=== PATIENT | female | born 1955 | race Caucasian/White ===

== ENCOUNTER 2016-07-31 16:54 | Emergency (ER) | payer OTHER ==
[~2016-07-31] VITALS: Ht 200.7 cm; Wt 131.0 kg
[~2016-07-31 16:54] MED LIST: LISI-363 PO; METO25TA6 PO
[2016-07-31 16:56] VITALS: BP 151/78; PULSE 77; RESP 15; TEMP 98.3; O2SAT 99
--- NOTE | 2016-07-31 17:00 | PD ---
Physical Exam Time Seen by Provider: 16:59 Narrative 61yo F c/o Left arm pain [id number]. Denies injury. Pain is at the left elbow and radiates up and down the arm. Patient seen in triage. VS reviewed. Awaiting bed placement. Data Data Last Documented VS Vital Signs Date Time Temp Pulse Resp B/P Pulse Ox O2 Delivery O2 Flow Rate FiO2 07/31/16 16:56 98.3 77 15 151/78 99 MDM Supervised Visit with CARLOS A: Shavon Reyes Jul 31, 2016 17:00
[2016-07-31] MEDS ORDERED: ORPH100T99 PO (17:52)
[2016-07-31] MEDS ORDERED: TRAM50TA PO (17:52)
[2016-07-31] MEDS ORDERED: PRED10PA2 PO (17:52)
--- NOTE | 2016-07-31 18:00 | PD ---
HPI Chief Complaint: Injury Time Seen by Provider: 17:53 Travel History International Travel<30 days: No Contact w/Intl Traveler<30days: No Traveled to known affect area: No History of Present Illness HPI 61-year-old female presents the emergency department with 2 week history of increasing left elbow and upper arm and shoulder pain over the past 2 weeks. Patient did have a recent knee replacement with Dr. Coats, and she has been using a walker for ambulation over the past few weeks. She denies any other specific injury. She has no numbness tingling or other weakness other than from pain. Patient denies carpal tunnel symptoms. She is been taking ibuprofen without improvement. The pain in the shoulder is worse at night. Pain currently an 8 out of 10. She has history of MRSA but no other medication allergy. PFSH Past Medical History Hx Anticoagulant Therapy: No Cancer: Yes (endometrial 2006) Cardiovascular Problems: Yes (HTN) Chemotherapy: No Cerebrovascular Accident: No Diabetes: Yes (PRE-DIABETIC) Diminished Hearing: No Hypertension: Yes Respiratory: No Immunizations Current: Yes ?: Not Menopausal: Yes : 4 Para: 4 Past Surgical History Section: Yes (x2) Cholecystectomy: Yes Hysterectomy: Yes (2006) Tonsillectomy: Yes Social History Alcohol Use: No Tobacco Use: No Substance Use: No Allergies-Medications (Allergen,Severity, Reaction): Coded Allergies: *MDRO Multi-Drug Resistant Organism (Unverified Adverse Reaction, Unknown , 08/09/15) MRSA Reported Meds & Prescriptions Reported Meds & Active Scripts Active Toprol XL (Metoprolol Succinate) 25 Mg Nidia 25 Mg PO DAILY 30 Days Reported Lisinopril 20 mg (Lisinopril) 20 Mg Tab 1 Tab PO DAILY Review of Systems Except as stated in HPI: all other systems reviewed are Neg General / Constitutional: No: Fever Eyes: No: Visual changes HENT: No: Headaches Cardiovascular: No: Chest Pain or Discomfort Respiratory: No: Shortness of Breath Gastrointestinal: No: Abdominal Pain Genitourinary: No: Dysuria Musculoskeletal: Positive: Myalgias, Arthralgias, Limited ROM, Pain Skin: No Rash Neurologic: No: Weakness Psychiatric: No: Depression Endocrine: No: Polydipsia Hematologic/Lymphatic: No: Easy Bruising Physical Exam Narrative GENERAL: Patient appears in no acute distress. SKIN: Warm and dry. Normal color. Normal turgor. No signs of trauma. HEAD: Atraumatic. Normocephalic. EYES: Pupils equal and round. No scleral icterus. No injection or drainage. ENT: No nasal bleeding or discharge. Mucous membranes pink and moist. Pharynx is clear. NECK: Trachea midline. No bony tenderness or step-off. Patient has full range of motion without tenderness or recurrence acute complaint symptoms. CARDIOVASCULAR: Regular rate and rhythm. RESPIRATORY: No accessory muscle use. Clear to auscultation. Breath sounds equal bilaterally. MUSCULOSKELETAL: Extremities without clubbing, cyanosis, or edema. No obvious deformities. Patient has significant soft tissue tenderness along the left trapezius, subscapularis, and paraspinous muscles which reproduce her symptoms. Patient also has specific tenderness at the left lateral upper condyle of the elbow, which is worse with palpation as well as supination and pronation against resistance. Patient has no rotator cuff symptoms. Home Health Care Coordinator strength is normal. Neurovascular exam is normal distal to the elbow. NEUROLOGICAL: Awake and alert. No obvious cranial nerve deficits. Motor grossly within normal limits. Five out of 5 muscle strength in the arms and legs. Normal speech. PSYCHIATRIC: Appropriate mood and affect; insight and judgment normal. Data Data Last Documented VS Vital Signs Date Time Temp Pulse Resp B/P Pulse Ox O2 Delivery O2 Flow Rate FiO2 07/31/16 16:56 98.3 77 15 151/78 99 MDM Medical Decision Making Medical Screen Exam Complete: Yes Emergency Medical Condition: Yes Differential Diagnosis Thoracic strain. Muscle spasm. Lateral epicondylitis. Narrative Course Patient is medically stable at time of exam. Radiographic imaging is not felt warranted based on my history and physical. Patient will be treated with Norflex 100 mg twice a day #10. Tramadol 50 mg one every 6 hours when necessary pain #20. And a prednisone Dosepak as prescribed. Patient is to use heat to the left shoulder area and ice to the left lateral upper condyle. Patient take Tylenol as well as needed. Patient should get a tennis elbow splint for the left forearm. Patient should follow-up with her primary care physician or orthopedic if symptoms do not improve or worsen as discussed. Diagnosis Primary Impression: Left shoulder pain Qualified Code: M25.512 - Chronic left shoulder pain Additional Impressions: Muscle spasm of left shoulder area Lateral epicondylitis, left elbow Referrals: Orthopedist Primary Care Physician Patient Instructions: General Instructions, Upper Back Exercises (GEN), Upper Extremity Tenosynovitis (DC) Additional Instructions: Radiographic imaging is not felt warranted based on my history and physical. Patient will be treated with Norflex 100 mg twice a day #10. Tramadol 50 mg one every 6 hours when necessary pain #20. And a prednisone Dosepak as prescribed. Patient is to use heat to the left shoulder area and ice to the left lateral upper condyle. Patient take Tylenol as well as needed. Patient should get a tennis elbow splint for the left forearm. Patient should follow-up with her primary care physician or orthopedic if symptoms do not improve or worsen as discussed. Med/Other Pt SpecificInfo: Prescription(s) given Scripts Tramadol 50 Mg Tab50 Mg PO Q6H PRN (PAIN) #20 TAB Prov:Ronal Guerrier MD 07/31/16 Prednisone (48) 10 mg tab Dose Pack 10 Mg Dspk10 Mg PO DIRECTED #1 DSPK Prov:Ronal Guerrier MD 07/31/16 Orphenadrine ER 12 HR (Orphenadrine CR)100 Mg Xha147 Mg PO Q12HR #10 TAB Prov:Ronal Guerrier MD 07/31/16 Disposition: 01 DISCHARGE HOME Condition: Stable Mike Castillo Jul 31, 2016 18:00
[2016-07-31] MEDS ORDERED: LISI-515 PO (18:23)
[2016-07-31] MEDS ORDERED: DULA10IN SQ (18:24)
== END 2016-07-31 18:28 | disposition home or self-care (01) ==
LOC: NEPK 16:54
DX: M25.512 Pain in left shoulder (principal); M62.838 Other muscle spasm; R73.03 Prediabetes; I10 Essential (primary) hypertension
CPT/HCPCS: 99284